=== PATIENT | male | born 1975 | race Caucasian/White ===

== ENCOUNTER 2016-10-20 20:36 | Emergency (ER) | payer SELFPAY ==
[~2016-10-20] VITALS: Ht 180.3 cm; Wt 119.3 kg
[~2016-10-20 20:36] MED LIST: AMOXICILLIN500 MG ORAL; AZITHROMYCIN250 MG ORAL; CYCLOBENZAPRINE10 MG ORAL; JANUMET 50-1,01 EACH ORAL; LISINOPRIL10 MG ORAL; LISINOPRIL20 MG ORAL; LOVASTATIN10 MG ORAL; METFORMIN HCL1000 M1 ORAL; NAPROSYN500 M1 ORAL; PROMETHAZINE-D118 ML ORAL
[2016-10-20] MEDS ORDERED: HUMULIN R100 UNIT/1 SUBQ (20:53)
[2016-10-20] MEDS ORDERED: FENOFIBRATE54 MG ORAL (20:54)
[2016-10-20] MEDS ORDERED: CLARITIN10 M2 ORAL (20:56)
[2016-10-20 21:03] VITALS: BP 115/74
--- NOTE | 2016-10-22 13:43 | Emergency Room Report ---
History of Present Illness General Chief Complaint: Upper Respiratory Illness Source: Patient Present Illness HPI Patient's 40-year-old male presented after increased upper respiratory symptoms as well as a nonproductive cough. The patient had ill family members home. Patient is a diabetic and did not take his insulin. Patient had eaten very sugar meal. The patient denied any fever. He had some nasal congestion associated with earache. He denied any chest pain or shortness of breath. Allergies: Coded Allergies: NO KNOWN DRUG ALLERGIES (Unverified Allergy, Unknown, 05/11/14) Patient History Past Medical History: see triage record Reviewed Nursing Documentation: PMH: Agreed, PSxH: Agreed Nursing Documentation-PMH Hx Cardiac Problems: Yes - HIGH CHOLESTEROL Hx Diabetes: Yes Hx Cancer: No Hx Gastrointestinal Problems: Yes - constipation Hx Neurological Problems: No Review of Systems All Other Systems: negative except mentioned in HPI Physical Exam Vital Signs Date Time Temp Pulse Resp B/P Pulse Ox O2 Delivery O2 Flow Rate FiO2 10/20/16 20:49 98.2 110 14 115/74 95 Room Air Sp02 EP Interpretation: reviewed, normal General Appearance: normal inspection, well appearing, no apparent distress, alert, GCS 15 Head: atraumatic ENT: normal ENT inspection, hearing grossly normal, normal voice Neck: normal inspection, full range of motion, supple, no bony tend Respiratory: normal inspection, lungs clear, normal breath sounds, no respiratory distress, no retraction, no wheezing Cardiovascular #1: regular rate, rhythm, no edema Gastrointestinal: normal inspection, normal bowel sounds, non tender, soft, no guarding, no hernia Genitourinary: no CVA tenderness Musculoskeletal: normal inspection, back normal, normal range of motion Neurologic: normal inspection, alert, oriented x3, responsive, customer quality engineer III-XII nml as tested, speech normal Psychiatric: normal inspection, judgement/insight normal, mood/affect normal Skin: normal inspection, normal color, no rash Medical Decision Making Diagnostic Impression: Primary Impression: Upper respiratory infection ER Course Patient presented for cough. Differential diagnosis included but was not limited to the uncontrolled diabetes, upper respiratory infection, bronchitis, pneumonia, pulmonary embolism, pericarditis, asthma, foreign body. Patient's benign exam and does not appear to require any further imaging or laboratory testing at this time. The patient presented an upper respiratory infection which does not require antibiotic treatment at this time. Patient was given prescription for Claritin. The patient was advised dietary modification. He was also advised to continue with his medications followup with his primary care physician for reexamination. Patient's blood sugar is noted be slightly greater than 300. The patient stated that he would take his insulin when he got home. Patient is advised to return if he began having increased blood sugar dizziness or weakness or other concerns. Last Vital Signs Date Time Temp Pulse Resp B/P Pulse Ox O2 Delivery O2 Flow Rate FiO2 10/20/16 21:03 98.2 14 115/74 95 Room Air 10/20/16 20:56 110 Status: improved Disposition: HOME, SELF-CARE Condition: Stable Scripts Loratadine (CLARITIN) 10 Mg Capsule 10 MG ORAL DAILY, #30 CAP Prov: Jono Koenig 10/20/16 Referrals: NOT CHOSEN IPA/,REFERRING (PCP) Patient Instructions: Upper Respiratory Infection, Adult Jono Koenig Oct 22, 2016 13:43
== END 2016-10-20 21:15 | disposition home or self-care (01) ==
LOC: EMR 21:05
DX: J06.9 Acute upper respiratory infection, unspecified (principal); E11.9 Type 2 diabetes mellitus without complications
CPT/HCPCS: 99283

== ENCOUNTER 2017-03-12 18:31 | Emergency (ER) | payer SELFPAY ==
[~2017-03-12] VITALS: Ht 180.3 cm; Wt 119.7 kg
[~2017-03-12 18:31] MED LIST changes: +CLARITIN10 M2 ORAL; +FENOFIBRATE54 MG ORAL; +HUMULIN R100 UNIT/1 SUBQ
[2017-03-12 20:30] VITALS: BP 123/79
[2017-03-12 20:38] VITALS: BP 123/79
--- NOTE | 2017-03-12 21:42 | Emergency Room Report ---
History of Present Illness General Chief Complaint: Pain Source: Patient (BETO MASSEY) Present Illness HPI The patient is a 41-year-old male presenting for left toe pain. He states that this began 2 days prior after he dropped a heavy bucket onto the toe. Pain is a 7/10 dull ache and does not radiate. Worse with touch. He has not taken any medications for the pain. He denies any other injury or symptoms (BETO MASSEY) Allergies: Coded Allergies: NO KNOWN DRUG ALLERGIES (Unverified Allergy, Unknown, 05/11/14) Patient History Past Medical History: see triage record Pertinent Family History: none Reviewed Nursing Documentation: PMH: Agreed, PSxH: Agreed (BETO MASSEY) Nursing Documentation-PMH Hx Cardiac Problems: Yes - Hypercholesterolemia Hx Diabetes: Yes Hx Cancer: No Hx Gastrointestinal Problems: Yes - Constipation Hx Neurological Problems: No (BETO MASSEY) Review of Systems All Other Systems: negative except mentioned in HPI (BETO MASSEY) Physical Exam Vital Signs Date Time Temp Pulse Resp B/P (MAP) Pulse Ox O2 Delivery O2 Flow Rate FiO2 03/12/17 18:38 97.9 100 18 123/79 96 Room Air Sp02 EP Interpretation: reviewed, normal General Appearance: no apparent distress, alert, GCS 15, non-toxic Head: normocephalic, atraumatic Eyes: bilateral eye normal inspection, bilateral eye PERRL Musculoskeletal: back normal, gait/station normal, normal range of motion, no calf tenderness, tender - L 1st toe Neurologic: alert, oriented x3, responsive, motor strength/tone normal, sensory intact, speech normal Psychiatric: judgement/insight normal, memory normal, mood/affect normal, no suicidal/homicidal ideation Skin: other - L 1st toe subungual hematoma Lymphatic: no adenopathy (BETO MASSEY.ABeltran) Procedures Nail Trepanation Nail Trepanation : Consent: Verbal Nail Trepanation Location: L 1st toenail Method of Drainage: nail cauterized Sterile Dressing Applied: No Finger Splint: No Patient Tolerated: Well Complications: None (BETO MASSEYABeltran) Medical Decision Making PA Attestation Dr. Conrad is my supervising physician. Patient management was discussed with my supervising physician (BETO MASSEY) Diagnostic Impression: Primary Impression: Subungual hematoma ER Course The patient is a 41-year-old male presenting for left toe pain. Ddx considered include but not limited to subungual hematoma, sprain/strain, fracture, contusion PE: NAD There is tenderness to palpation over the left distal first toe. Subungual hematoma X-ray of the left foot unremarkable Nail trepanation performed with electrocautery. Dark blood was expelled and the patient had relief of pain. Patient tolerated well He will keep the area clean and dry. ER precautions are given (BETO MASSEY) Other X-Ray Diagnostic Results Other X-Ray Diagnostic Results : X-Ray ordered: L foot # of Views/Limited Vs Complete: 3 View, Complete Indication: Pain EP Interpretation: Yes PA Xray: Interpretation reviewed, by supervising MD, and agrees with findings. Interpretation: no dislocation, no soft tissue swelling, no fractures Impression: No acute disease Electronically Signed by: Beto Massey PA-C (BETO MASSEY) Other X-Ray Diagnostic Results : Electronically Signed by: Tyree documentation reviewed by me and is accurate, Christiano Conrad MD. (Christiano Conrad M.D.) Last Vital Signs Date Time Temp Pulse Resp B/P (MAP) Pulse Ox O2 Delivery O2 Flow Rate FiO2 03/12/17 18:38 97.9 100 18 123/79 96 Room Air Status: improved (BETO MASSEY) Disposition: HOME, SELF-CARE Condition: Improved Patient Instructions: Subungual Hematoma Additional Instructions: I discussed my findings with the patient. All questions and concerns have been answered. Treatment and medication compliance have been addressed. I advised the patient that they need to follow up with PMD in 3-5 days. Return to ED if symptoms worsen, new symptoms arise, or if needed for any reason. Patient verbalized understanding of discharge instructions. If you notice redness of your skin, please return to emergency department as soon as possible BETO MASSEY Mar 12, 2017 21:42 Christiano Conrad M.D. Mar 13, 2017 07:47
--- NOTE | 2017-03-15 15:17 | Diagnostic Imaging Report ---
Indication: Left foot pain Technique: Left foot 3 views Comparison: None Findings: There is no acute fracture or dislocation. Mild soft tissue swelling of the foot is noted. There is a tiny posterior calcaneal is a fight. Flexion deformities are noted of the second and third digits. There is slight subluxation of the second distal interphalangeal joint. Impression: No acute fracture or dislocation. Slight subluxation of the second distal interphalangeal joint seen on the oblique view. Clinical correlation recommended. Tiny posterior calcaneal enthesophyte.
== END 2017-03-12 20:38 | disposition home or self-care (01) ==
LOC: EMR 19:00
DX: S90.212A Contusion of left great toe with damage to nail, initial encounter (principal); W20.8XXA Other cause of strike by thrown, projected or falling object, initial encounter; Y92.89 Other specified places as the place of occurrence of the external cause; E11.9 Type 2 diabetes mellitus without complications; E78.00 Pure hypercholesterolemia, unspecified
CPT/HCPCS: 99283

== ENCOUNTER 2017-03-17 23:17 | Emergency (ER) | payer SELFPAY ==
[~2017-03-17] VITALS: Ht 180.3 cm; Wt 119.3 kg
[2017-03-17 23:59] VITALS: BP 122/81
--- NOTE | 2017-03-18 02:12 | Emergency Room Report ---
History of Present Illness General Chief Complaint: Lower Extremity Injury Present Illness HPI Patient presents for evaluation of toe injury There was a glue bottle the fell on the toe approximately 6 days ago Patient was seen here in had cautery done Patient is here with was concerned that the patient has diabetes In the nailbed area appears discolored Patient denies any pain to the area however with increased walking there is some discomfort Denies any fevers or chills Allergies: Coded Allergies: NO KNOWN DRUG ALLERGIES (Unverified Allergy, Unknown, 05/11/14) Patient History Past Medical History: see triage record Pertinent Family History: none Reviewed Nursing Documentation: PMH: Agreed, PSxH: Agreed Nursing Documentation-PMH Hx Cardiac Problems: Yes - Hypercholesterolemia Hx Diabetes: Yes Hx Cancer: No Hx Gastrointestinal Problems: Yes - Constipation Hx Neurological Problems: No Review of Systems All Other Systems: negative except mentioned in HPI Physical Exam Vital Signs Date Time Temp Pulse Resp B/P (MAP) Pulse Ox O2 Delivery O2 Flow Rate FiO2 03/17/17 23:33 97.9 104 16 122/81 95 Room Air Sp02 EP Interpretation: reviewed, normal General Appearance: well appearing, no apparent distress Head: normocephalic, atraumatic Eyes: bilateral eye PERRL, bilateral eye EOMI Musculoskeletal: normal inspection Neurologic: alert, oriented x3, responsive Psychiatric: mood/affect normal Skin: other - Left large toe there appears to be a subungual hematoma, the nailbed area also does appear mildly discolored the hole that was placed with cautery appears to have closed up, the nail itself appears to be somewhat loose Lymphatic: no adenopathy Medical Decision Making Diagnostic Impression: Primary Impression: Subungual hematoma ER Course The clinical exam at this time reveals findings that are in line with subungual hematoma and secondary effects of this I did discuss with the family that likely the nail will be falling off They require close follow with primary physician and that she followup given the diabetic history Last Vital Signs Date Time Temp Pulse Resp B/P (MAP) Pulse Ox O2 Delivery O2 Flow Rate FiO2 03/17/17 23:33 97.9 104 16 122/81 95 Room Air Status: unchanged Disposition: HOME, SELF-CARE Condition: Stable Referrals: NON PHYSICIAN (PCP) Patient Instructions: Subungual Hematoma, [id number] Additional Instructions: This appears to be a natural progression of the initial acute injury. The toenail itself will likely fall off given the appearance. Given your risk factors followup with primary physician for podiatry followup is very important DESTIN COLON D.O. Mar 18, 2017 02:12
== END 2017-03-17 23:59 | disposition home or self-care (01) ==
LOC: EMR 23:59
DX: S90.212A Contusion of left great toe with damage to nail, initial encounter (principal); W22.8XXA Striking against or struck by other objects, initial encounter; Y92.9 Unspecified place or not applicable; E11.9 Type 2 diabetes mellitus without complications; E78.00 Pure hypercholesterolemia, unspecified
CPT/HCPCS: 99282

== ENCOUNTER 2017-06-02 21:53 | Emergency (ER) | payer SELFPAY ==
[~2017-06-02] VITALS: Ht 180.3 cm; Wt 121.6 kg
[2017-06-02 22:22] VITALS: BP 114/73
[2017-06-02 22:26] VITALS: BP 114/73
--- NOTE | 2017-06-02 22:53 | Emergency Room Report ---
History of Present Illness General Chief Complaint: Pain Source: Patient Present Illness HPI 41-year-old male presenting with left toenail discoloration. States that he injured it 2 months ago, he had a nail trephination performed, however nail is still dark. Also has chronic pain although he has been able to walk on it. No purulent drainage no redness. No other complaints Allergies: Coded Allergies: NO KNOWN DRUG ALLERGIES (Unverified Allergy, Unknown, 05/11/14) Patient History Past Medical History: see triage record Past Surgical History: none Pertinent Family History: none Reviewed Nursing Documentation: PMH: Agreed; PSxH: Agreed Nursing Documentation-PMH Hx Cardiac Problems: Yes - Hypercholesterolemia Hx Diabetes: Yes Hx Cancer: No Hx Gastrointestinal Problems: Yes - Constipation Hx Neurological Problems: No Review of Systems All Other Systems: negative except mentioned in HPI Physical Exam Vital Signs Date Time Temp Pulse Resp B/P (MAP) Pulse Ox O2 Delivery O2 Flow Rate FiO2 06/02/17 21:57 98.2 102 14 114/73 95 Room Air 98.2 Sp02 EP Interpretation: reviewed, normal General Appearance: normal inspection, well appearing, no apparent distress, alert, GCS 15, non-toxic Head: normocephalic, atraumatic Eyes: bilateral eye normal inspection, bilateral eye PERRL, bilateral eye EOMI ENT: normal ENT inspection, normal pharynx, normal voice, moist mucus membranes Neck: normal inspection, full range of motion, supple Respiratory: normal inspection Cardiovascular #1: normal inspection Cardiovascular #2: 2+ radial (R), 2+ radial (L) Gastrointestinal: normal inspection Genitourinary: no CVA tenderness Musculoskeletal: other - Left toenail with darkish discoloration, nontender to palpation, trephination puncture wound noted, no redness of surrounding skin not , no purulent drainage, full range of motion Neurologic: normal inspection, alert, oriented x3, responsive, motor strength/ tone normal, sensory intact, normal gait, speech normal Psychiatric: normal inspection, judgement/insight normal, memory normal Skin: normal inspection, normal color, no rash, warm/dry, well hydrated, normal turgor Medical Decision Making Diagnostic Impression: Primary Impression: Toe pain, chronic ER Course 41-year-old male with left toenail discoloration, 2 months ago had a nail trephination performed DDX: Likely chronic discoloration from healing injury Plan: None ER course: Patient has remained stable during ED stay. Disposition: Patient is to be discharged to home. Patient is instructed to follow up with their primary care doctor within 5 days. Please note that this Emergency Department Report was dictated using [employer] technician technology software, occasionally this can lead to erroneous entry secondary to interpretation by the dictation equipment Last Vital Signs Date Time Temp Pulse Resp B/P (MAP) Pulse Ox O2 Delivery O2 Flow Rate FiO2 06/02/17 22:26 102 14 114/73 95 Room Air 06/02/17 22:22 98.2 98.2 Disposition: HOME, SELF-CARE Condition: Stable Referrals: NON PHYSICIAN (PCP) Additional Instructions: PLEASE FOLLOW UP WITH YOUR DOCTOR IN 1 WEEK WITHOUT FAIL Maria Luisa Justice M.D. Jun 02, 2017 22:53
== END 2017-06-02 22:26 | disposition home or self-care (01) ==
LOC: EMR 22:16
DX: M79.675 Pain in left toe(s) (principal); G89.29 Other chronic pain; E11.9 Type 2 diabetes mellitus without complications
CPT/HCPCS: 99282

== ENCOUNTER 2017-12-04 22:52 | Emergency (ER) | payer SELFPAY ==
[~2017-12-04] VITALS: Ht 175.3 cm; Wt 88.5 kg
[2017-12-04] MEDS ORDERED: IBUPROFEN600 MG ORAL (23:48)
--- NOTE | 2017-12-04 23:52 | Emergency Room Report ---
History of Present Illness General Chief Complaint: Lower Extremity Injury Source: Patient Present Illness HPI Patient presents with complaints of right knee pain Reports that the discomfort has been ongoing for the past several months He feels that at times his knee pops This morning patient had an episode where he missed a step and felt pain to the right knee Denies any chest pain or short of breath denies any pelvic pain Pain is worse with ambulation better with rest Denies any swelling denies any erythema Allergies: Coded Allergies: NO KNOWN DRUG ALLERGIES (Unverified Allergy, Unknown, 05/11/14) Patient History Past Medical History: see triage record Pertinent Family History: none Reviewed Nursing Documentation: PMH: Agreed; PSxH: Agreed Nursing Documentation-PMH Hx Cardiac Problems: Yes - Hypercholesterolemia Hx Diabetes: Yes Hx Cancer: No Hx Gastrointestinal Problems: Yes - Constipation Hx Neurological Problems: No Review of Systems All Other Systems: negative except mentioned in HPI Physical Exam Vital Signs Date Time Temp Pulse Resp B/P (MAP) Pulse Ox O2 Delivery O2 Flow Rate FiO2 12/04/17 22:58 98.2 78 16 143/88 99 Room Air 98.2 Sp02 EP Interpretation: reviewed, normal General Appearance: well appearing, no apparent distress Head: normocephalic, atraumatic Eyes: bilateral eye PERRL, bilateral eye EOMI ENT: hearing grossly normal, normal pharynx Neck: supple Respiratory: lungs clear Musculoskeletal: normal inspection - Patient has appropriate anterior posterior draw on the right knee, no obvious laxity no joint effusion clinically sensory intact Neurologic: alert, oriented x3 Skin: normal color, no rash Lymphatic: no adenopathy Medical Decision Making Diagnostic Impression: Primary Impression: knee pain ER Course Given the patient's history exam and presentation There are multiple differentials considered including but not limited to, disc pathology ligamental pathology Consideration for acute fracture is low Patient did not have any acute trauma or direct trauma Patient reports that they have follow-up with their physician on Tuesday Patient would benefit from MRI imaging for further evaluation as disposition for close outpatient follow-up after oral pain medication , Last Vital Signs Date Time Temp Pulse Resp B/P (MAP) Pulse Ox O2 Delivery O2 Flow Rate FiO2 12/04/17 22:58 98.2 78 16 143/88 99 Room Air 98.2 Status: improved Disposition: HOME, SELF-CARE Condition: Improved Scripts Ibuprofen* (MOTRIN*) 600 Mg Tablet 600 MG ORAL THREE TIMES A DAY, #20 TAB 0 Refills Prov: Telly Dempsey DO 12/04/17 Referrals: NOT CHOSEN IPA/MD,REFERRING (PCP) Patient Instructions: Knee Pain, [id number] Additional Instructions: please keep your appointment with your primary physician. Patient also provided with the discharge instructions notified to follow up with primary doctor in the next 2-3 days otherwise return to the er with any worsening symptoms. Please note that this report is being documented using [employer] technology. This can lead to erroneous entry secondary to incorrect interpretation by the dictating instrument. Telly Dempsey DO Dec 04, 2017 23:52
[2017-12-05 00:01] VITALS: BP 143/88
== END 2017-12-05 00:05 | disposition home or self-care (01) ==
LOC: EMR 23:26
DX: M25.561 Pain in right knee (principal); E11.9 Type 2 diabetes mellitus without complications; E78.00 Pure hypercholesterolemia, unspecified
CPT/HCPCS: 99283

== ENCOUNTER 2018-06-08 21:53 | Emergency (ER) | payer SELFPAY ==
[~2018-06-08] VITALS: Ht 180.3 cm; Wt 115.7 kg
[~2018-06-08 21:53] MED LIST changes: +IBUPROFEN600 MG ORAL
--- NOTE | 2018-06-08 22:27 | NUR ---
ED Nurse Note: pt walked in c/o right side chest pain radiating to back intermittently for past month, denies other sx, denies sob. pt AA&ox4, gcs=15, skin warm and dry, resp even and unlabored on RA, -n/v/d, ambulates w/ steady gait, VSS, NSR on distribution agent, will cont monitor.
[2018-06-08 22:28] VITALS: BP 120/68
--- NOTE | 2018-06-08 23:10 | NUR ---
HAND OFF: Per RN Katherine, RN received report from triage nurse, endorsed care to receiving RN, pt vss, NSR on secured entrance monitor, resp even and unlabored on RA, no sx distress at this time.
--- NOTE | 2018-06-08 23:14 | NUR ---
Note matildaone in EDM - 06/09/18 at 1950 by [facility] ED Nurse Note: receiving KIMO Murphy refused to get report, endorsed care, pt vss, resp even and unlabored on RA, Nsr on rn cardiac rehab.
--- NOTE | 2018-06-08 23:15 | NUR ---
ED Nurse Note: RECIEVED REPORT TO RESUME CARE, PT IN BED AWAKE AND ALERT, PT HAS IV LINE STARTED BY PREVIOUS NURSE, PT HERE WITH C/O CHES PAIN, STATES HAD CONSTIPATION FOR PAST MONTH AND MILD RELIEF, DENIES CP AT THIS TIME, ON CARDIAC MONITORING, SPOUSE AT BEDSIDE, WILL RESUME CARE ORDERD AND CONTINUE TO CLOSELY MONITOR.
--- NOTE | 2018-06-08 23:21 | Emergency Room Report ---
History of Present Illness General Chief Complaint: Chest Pain Source: Patient Present Illness HPI Patient presents with complaints of right upper chest pain ongoing for the past one month It was felt that the patient had increased pain with movement and some muscle skeletal component denies any short of breath denies any pleurisy Denies any recent fall or trauma denies any dysuria frequency There is some radiation towards the upper back Allergies: Coded Allergies: NO KNOWN DRUG ALLERGIES (Unverified Allergy, Unknown, 05/11/14) Patient History Past Medical History: see triage record Pertinent Family History: none Reviewed Nursing Documentation: PMH: Agreed; PSxH: Agreed Nursing Documentation-PMH Past Medical History: No History, Except For Hx Cardiac Problems: Yes - Hypercholesterolemia Hx Diabetes: Yes Hx Cancer: No Hx Gastrointestinal Problems: Yes - Constipation Hx Neurological Problems: No Review of Systems All Other Systems: negative except mentioned in HPI Physical Exam Vital Signs Date Time Temp Pulse Resp B/P (MAP) Pulse Ox O2 Delivery O2 Flow Rate FiO2 06/08/18 22:05 97.9 94 16 126/79 95 Room Air Sp02 EP Interpretation: reviewed, normal General Appearance: well appearing, no apparent distress Head: normocephalic, atraumatic Eyes: bilateral eye PERRL, bilateral eye EOMI ENT: hearing grossly normal, normal pharynx, TMs + canals normal, uvula midline Neck: full range of motion, supple, no meningismus, no bony tend Respiratory: lungs clear, normal breath sounds, no rhonchi, no respiratory distress, no retraction, no accessory muscle use Cardiovascular #1: normal peripheral pulses, regular rate, rhythm, no edema, no gallop, no JVD, no murmur Gastrointestinal: normal bowel sounds, non tender, soft, no mass, no organomegaly, non-distended, no guarding, no hernia, no pulsatile mass, no rebound Genitourinary: no CVA tenderness Musculoskeletal: normal inspection Neurologic: oriented x3, responsive, rn camp III-XII nml as tested, motor strength/ tone normal, sensory intact Psychiatric: mood/affect normal Skin: normal color, no rash, warm/dry, palpation normal Lymphatic: normal inspection, no adenopathy Medical Decision Making Diagnostic Impression: Primary Impression: Chest pain Additional Impression: Diabetes ER Course Patient is a fairly complex patient with multiple differential to consideration including but not limited to cardiac cardiopulmonary and vascular emergencies Patient's blood work reveals some elevated liver function test Glucose level was also significantly elevated This was addressed in the emergency room patient reports that he takes metformin Blood work is printed for the patient he requires close follow-up with his primary physician medication such as metformin can cause liver problems also Potentially experiencing biliary colic with some radiation to the back Patient otherwise does not show any signs of acute cholecystitis And is stable for close outpatient follow-up Labs Test 06/08/18 22:53 White Blood Count 5.8 K/UL (4.8-10.8) Red Blood Count 5.01 M/UL (4.70-6.10) Hemoglobin 15.4 G/DL (14.2-18.0) Hematocrit 43.6 % (42.0-52.0) Mean Corpuscular Volume 87 FL (80-99) Mean Corpuscular Hemoglobin 30.7 PG (27.0-31.0) Mean Corpuscular Hemoglobin Concent 35.2 G/DL (32.0-36.0) Red Cell Distribution Width 12.1 % (11.6-14.8) Platelet Count 140 K/UL (150-450) Mean Platelet Volume 9.8 FL (6.5-10.1) Neutrophils (%) (Auto) 44.6 % (45.0-75.0) Lymphocytes (%) (Auto) 42.0 % (20.0-45.0) Monocytes (%) (Auto) 7.4 % (1.0-10.0) Eosinophils (%) (Auto) 3.6 % (0.0-3.0) Basophils (%) (Auto) 2.4 % (0.0-2.0) Sodium Level 135 MMOL/L (136-145) Potassium Level 4.2 MMOL/L (3.5-5.1) Chloride Level 99 MMOL/L (98-107) Carbon Dioxide Level 28 MMOL/L (21-32) Anion Gap 8 mmol/L (5-15) Blood Urea Nitrogen 19 mg/dL (7-18) Creatinine 1.1 MG/DL (0.55-1.30) Estimat Glomerular Filtration Rate > 60 mL/min (>60) Glucose Level 380 MG/DL (74-106) Calcium Level 8.7 MG/DL (8.5-10.1) Total Bilirubin 0.4 MG/DL (0.2-1.0) Aspartate Amino Transf (AST/SGOT) 71 U/L (15-37) Alanine Aminotransferase (ALT/SGPT) 89 U/L (12-78) Alkaline Phosphatase 129 U/L (46-116) Total Creatine Kinase 92 U/L (26-308) Creatine Kinase MB 0.6 NG/ML (0.0-3.6) Creatine Kinase MB Relative Index 0.6 Troponin I 0.000 ng/mL (0.000-0.056) Total Protein 7.6 G/DL (6.4-8.2) Albumin 3.9 G/DL (3.4-5.0) Globulin 3.7 g/dL Albumin/Globulin Ratio 1.1 (1.0-2.7) EKG Diagnostic Results Rate: normal Rhythm: NSR ST Segments: other - Nonspecific ST T-wave changes Rhythm Strip Diag. Results EP Interpretation: yes Rate: 77 Rhythm: NSR, no PVC's, no ectopy Chest X-Ray Diagnostic Results Chest X-Ray Diagnostic Results : Chest X-Ray Ordered: Yes # of Views/Limited/Complete: 1 View Indication: Chest Pain EP Interpretation: Yes Interpretation: no consolidation, no effusion, no pneumothorax Impression: No acute disease Electronically Signed by: Telly Dempsey DO Last Vital Signs Date Time Temp Pulse Resp B/P (MAP) Pulse Ox O2 Delivery O2 Flow Rate FiO2 06/08/18 22:30 97 18 Room Air 06/08/18 22:28 98.4 120/68 96 Status: improved Disposition: HOME, SELF-CARE Condition: Improved Additional Instructions: Patient is provided with the discharge instructions notified to follow up with primary doctor in the next 2-3 days otherwise return to the er with any worsening symptoms. Please note that this report is being documented using [employer] technology. This can lead to erroneous entry secondary to incorrect interpretation by the dictating instrument. Telly Dempsey DO Jun 08, 2018 23:21
[2018-06-08 23:29] LABS: BASOPHILS % (AUTO) 2.4 % (0.0-2.0); EOSINOPHILS % (AUTO) 3.6 % (0.0-3.0); HEMATOCRIT 43.6 % (42.0-52.0); HEMOGLOBIN 15.4 G/DL (14.2-18.0); MEAN CORPUSCULAR VOLUME 87 FL (80-99); MONOCYTES % (AUTO) 7.4 % (1.0-10.0); NEUTROPHILS % (AUTO) 44.6 % (45.0-75.0); PLATELET COUNT 140 K/UL (150-450); RED BLOOD COUNT 5.01 M/UL (4.70-6.10); RED CELL DISTRIBUTION WIDTH 12.1 % (11.6-14.8); WHITE BLOOD COUNT 5.8 K/UL (4.8-10.8)
[2018-06-08 23:30] LABS: ANION GAP 8 mmol/L (5-15); BLOOD UREA NITROGEN 19 mg/dL (7-18); CALCIUM 8.7 MG/DL (8.5-10.1); CARBON DIOXIDE 28 MMOL/L (21-32); CHLORIDE 99 MMOL/L (98-107); CREATININE 1.1 MG/DL (0.55-1.30); POTASSIUM 4.2 MMOL/L (3.5-5.1); SODIUM 135 MMOL/L (136-145)
[2018-06-08 23:45] LABS: ALBUMIN 3.9 G/DL (3.4-5.0); ALBUMIN/GLOBULIN RATIO 1.1 (1.0-2.7); BILIRUBIN,TOTAL 0.4 MG/DL (0.2-1.0); CKMB 0.6 NG/ML (0.0-3.6); CREATINE KINASE 92 U/L (26-308)
[2018-06-09] VITALS: BP 133/64
[2018-06-09] MEDS ORDERED: Insulin Human Regular 100units/ml 3ml SUBQ ONE (00:15)
[2018-06-09 00:18] LABS: ALANINE AMINOTRANSFERASE 89 U/L (12-78); ALKALINE PHOSPHATASE 129 U/L (46-116)
[2018-06-09 00:28] LABS: ASPARTATE AMINO TRANSFERASE 71 U/L (15-37)
--- NOTE | 2018-06-09 00:40 | NUR ---
ED Nurse Note: PT BEING D/C TO HOME, AWAKE, ALERT AND ORIENETED X 4, AMBULATORY, PAIN RESOLVED AT THIS TIME, NO CP, NO SOB OR LABORED BREATHING, PT AND GIVEN F/U INFO, AFTER CARE INSTRUCTIONS AND RE-VERBALIZES PROPER MEDICATION ADMINISTRATION, PT IV LINE AND ARMBAND REMOVED WITHOUT COMPLICATIONS, NAD NOTED DURING D/C TO HOME.
[2018-06-09 00:43] VITALS: BP 133/64
--- NOTE | 2018-06-09 17:57 | Diagnostic Imaging Report ---
Indication: Chest pain Technique: One view of the chest Comparison: 05/15/2015 Findings: There is some atelectasis at the left lung base. Lungs and pleural spaces are otherwise clear. Patient's chin obscures the upper mediastinum. No significant interim change Impression: No acute process
== END 2018-06-09 00:40 | disposition home or self-care (01) ==
LOC: EMR 22:45
DX: R07.9 Chest pain, unspecified (principal); E11.9 Type 2 diabetes mellitus without complications; E78.00 Pure hypercholesterolemia, unspecified
CPT/HCPCS: 36415; 71045; 80053; 82550; 82553; 82962; 84484; 85025; 93005; 96372; 99283; J1815

== ENCOUNTER 2018-10-25 21:28 | Emergency (ER) | payer SELFPAY ==
[~2018-10-25] VITALS: Ht 180.3 cm; Wt 119.3 kg
[2018-10-25 22:00] VITALS: BP 130/84
--- NOTE | 2018-10-25 22:00 | NUR ---
ED Nurse Note: RECIEVED PT FROM HOME, C/O LEFT MID ABDOMINAL PAIN FOR A WHILE WITH PAIN STARTING ABOUT 1 WEEK AGO, PT CAN NOT TELL IF EATING OR ANYTHING INCREASES PAIN, JUST INTERMITTENTLY AT 7/10, DENIES NAUSEA, PT ASSISTED TO GOWNING AND LABS DONE, WILL CONTINUE TO CLOSELY MONITOR, PT REPORTS PAIN AT 7/10.
--- NOTE | 2018-10-25 22:06 | Emergency Room Report ---
History of Present Illness General Chief Complaint: Abdominal Pain Source: Patient Present Illness HPI Patient presents with complaints of left upper and mid abdominal pain ongoing for the past 3 days denies any vomiting or diarrhea Denies any chest pain He feels that the pain is worse in the morning time Denies any change with eating denies any diarrhea denies any fevers or chills denies any recent travel or trauma pain is a sharp pain Allergies: Coded Allergies: NO KNOWN DRUG ALLERGIES (Unverified Allergy, Unknown, 05/11/14) Patient History Past Medical History: see triage record Reviewed Nursing Documentation: PMH: Agreed; PSxH: Agreed Nursing Documentation-PM Past Medical History: No History, Except For Hx Cardiac Problems: Yes - Hypercholesterolemia Hx Diabetes: Yes Hx Cancer: No Hx Gastrointestinal Problems: Yes - Constipation Hx Neurological Problems: No Review of Systems All Other Systems: negative except mentioned in HPI Physical Exam Vital Signs Date Time Temp Pulse Resp B/P (MAP) Pulse Ox O2 Delivery O2 Flow Rate FiO2 10/25/18 21:38 98.4 106 18 128/87 (101) 94 Room Air Sp02 EP Interpretation: reviewed, normal General Appearance: well appearing, no apparent distress Head: normocephalic, atraumatic Eyes: bilateral eye PERRL, bilateral eye EOMI ENT: hearing grossly normal, normal pharynx, TMs + canals normal, uvula midline Neck: full range of motion, supple, no meningismus, no bony tend Respiratory: lungs clear, normal breath sounds, no rhonchi, no respiratory distress, no retraction, no accessory muscle use Cardiovascular #1: normal peripheral pulses, regular rate, rhythm, no edema, no gallop, no JVD, no murmur Gastrointestinal: normal bowel sounds, non tender - However subjectively points to the left upper abdominal area, soft, no mass, no organomegaly, non- distended, no guarding, no hernia, no pulsatile mass, no rebound Genitourinary: no CVA tenderness Musculoskeletal: normal inspection Neurologic: oriented x3, responsive, programming director III-XII nml as tested, motor strength/ tone normal, sensory intact Psychiatric: mood/affect normal Skin: no rash Lymphatic: normal inspection, no adenopathy Medical Decision Making Diagnostic Impression: Primary Impression: Abdominal pain ER Course With the history exam and presentation, multiple differentials considered, including but not limited to appendicitis, gastritis, cholecystitis, diverticulitis Patient's blood work again shows similar findings to previous very minimal AST ALT elevation CT imaging does not show any obvious acute pathology Patient had rested comfortably and at this time stable for close outpatient follow-up Labs Test 10/25/18 22:00 White Blood Count 7.6 K/UL (4.8-10.8) Red Blood Count 4.85 M/UL (4.70-6.10) Hemoglobin 14.7 G/DL (14.2-18.0) Hematocrit 40.8 % (42.0-52.0) Mean Corpuscular Volume 84 FL (80-99) Mean Corpuscular Hemoglobin 30.2 PG (27.0-31.0) Mean Corpuscular Hemoglobin Concent 35.9 G/DL (32.0-36.0) Red Cell Distribution Width 11.8 % (11.6-14.8) Platelet Count 173 K/UL (150-450) Mean Platelet Volume 8.3 FL (6.5-10.1) Neutrophils (%) (Auto) 41.0 % (45.0-75.0) Lymphocytes (%) (Auto) 46.2 % (20.0-45.0) Monocytes (%) (Auto) 7.3 % (1.0-10.0) Eosinophils (%) (Auto) 3.8 % (0.0-3.0) Basophils (%) (Auto) 1.8 % (0.0-2.0) Sodium Level 136 MMOL/L (136-145) Potassium Level 4.3 MMOL/L (3.5-5.1) Chloride Level 102 MMOL/L (98-107) Carbon Dioxide Level 25 MMOL/L (21-32) Anion Gap 10 mmol/L (5-15) Blood Urea Nitrogen 17 mg/dL (7-18) Creatinine 1.1 MG/DL (0.55-1.30) Estimat Glomerular Filtration Rate > 60 mL/min (>60) Glucose Level 281 MG/DL (74-106) Calcium Level 9.3 MG/DL (8.5-10.1) Total Bilirubin 0.5 MG/DL (0.2-1.0) Aspartate Amino Transf (AST/SGOT) 45 U/L (15-37) Alanine Aminotransferase (ALT/SGPT) 84 U/L (12-78) Alkaline Phosphatase 103 U/L (46-116) Total Protein 8.3 G/DL (6.4-8.2) Albumin 4.0 G/DL (3.4-5.0) Globulin 4.3 g/dL Albumin/Globulin Ratio 0.9 (1.0-2.7) Lipase 306 U/L (73-393) CT/MRI/US Diagnostic Results CT/MRI/US Diagnostic Results : Impression CT abdomen pelvis fat-containing umbilical hernia no other acute disease Last Vital Signs Date Time Temp Pulse Resp B/P (MAP) Pulse Ox O2 Delivery O2 Flow Rate FiO2 10/25/18 21:38 98.4 106 18 128/87 (101) 94 Room Air Status: improved Disposition: HOME, SELF-CARE Condition: Improved Scripts Famotidine (PEPCID AC) 20 Mg Tablet 20 MG PO DAILY, #7 TAB Prov: Telly Dempsey DO 10/26/18 Additional Instructions: Patient is provided with the discharge instructions notified to follow up with primary doctor in the next 2-3 days otherwise return to the er with any worsening symptoms. Please note that this report is being documented using [employer] technology. This can lead to erroneous entry secondary to incorrect interpretation by the dictating instrument. Telly Dempsey DO Oct 25, 2018 22:06
[2018-10-25 22:28] LABS: BASOPHILS % (AUTO) 1.8 % (0.0-2.0); EOSINOPHILS % (AUTO) 3.8 % (0.0-3.0); HEMATOCRIT 40.8 % (42.0-52.0); HEMOGLOBIN 14.7 G/DL (14.2-18.0); LYMPHOCYTES % (AUTO) 46.2 % (20.0-45.0); MEAN CORPUSCULAR VOLUME 84 FL (80-99); MONOCYTES % (AUTO) 7.3 % (1.0-10.0); PLATELET COUNT 173 K/UL (150-450); RED BLOOD COUNT 4.85 M/UL (4.70-6.10); RED CELL DISTRIBUTION WIDTH 11.8 % (11.6-14.8); WHITE BLOOD COUNT 7.6 K/UL (4.8-10.8)
--- NOTE | 2018-10-25 22:40 | Diagnostic Imaging Report ---
Indication: Left-sided abdominal pain for past 3 days Technique: Spiral acquisitions obtained through the abdomen and pelvis. No oral contrast utilized, per emergency room physician request No IV contrast utilized, per referring physician request.. Multiplanar reconstructions were generated. Total dose length product 1123.64 mGycm. CTDIvol(s) 18.84 mGy. Dose reduction achieved using automated exposure control Comparison: None Findings: The rectum is mildly distended by stool. Mild to moderate retained stool seen elsewhere in the colon as well. No evidence of diverticulosis or diverticulitis. The appendix is normal. There is no small bowel distention. There is a tiny umbilical hernia which contains only fat. No free or loculated intraperitoneal gas or fluid. There is a tiny right inguinal hernia which contains only fat. There is very slight infiltration of the fat of the mesenteric root. Lack of IV contrast limits assessment of the solid organs. The liver is mildly hypoattenuating and somewhat enlarged. No focal abnormality. There are cholecystectomy clips. No biliary ductal dilatation. The pancreas is unremarkable. The spleen is enlarged, measuring 15.2 cm long axis dimension. The adrenals and kidneys are unremarkable. No retroperitoneal or mesenteric mass or adenopathy. There is a retroaortic left renal vein incidentally noted. No pelvic mass or adenopathy. The prostate is somewhat prominent. The included lung bases demonstrate a calcified granuloma in the right middle lobe. There is some scarring at both lung bases. There are degenerative changes of the lumbar spine. Impression: Moderate retained stool, could indicate constipation. Correlate with clinical history. There is also mild rectal distention with stool, could indicate component of rectal fecal impaction. Nonspecific very mild inflammatory changes within the mesenteric root, etiology/significance uncertain No acute process otherwise Enlarged fatty liver Splenomegaly Other findings as noted, including fat-containing umbilical hernia, fat-containing right inguinal hernia, evidence of prior cholecystectomy, retroaortic left renal vein, old granulomatous disease within the right middle lobe, basilar pulmonary parenchymal scarring, and degenerative lumbar spondylosis This essentially agrees with the preliminary interpretation provided overnight by [facility]. The CT scanner at [facility] is accredited by the [employer] and the scans are performed using protocols designed to limit radiation exposure to as low as reasonably achievable to attain images of sufficient resolution adequate for diagnostic evaluation.
[2018-10-25 22:43] LABS: ANION GAP 10 mmol/L (5-15); BLOOD UREA NITROGEN 17 mg/dL (7-18); CALCIUM 9.3 MG/DL (8.5-10.1); CARBON DIOXIDE 25 MMOL/L (21-32); CHLORIDE 102 MMOL/L (98-107); CREATININE 1.1 MG/DL (0.55-1.30); POTASSIUM 4.3 MMOL/L (3.5-5.1); SODIUM 136 MMOL/L (136-145)
[2018-10-25 22:48] LABS: ALANINE AMINOTRANSFERASE 84 U/L (12-78); ALBUMIN/GLOBULIN RATIO 0.9 (1.0-2.7); ALKALINE PHOSPHATASE 103 U/L (46-116); ASPARTATE AMINO TRANSFERASE 45 U/L (15-37); BILIRUBIN,TOTAL 0.5 MG/DL (0.2-1.0)
--- NOTE | 2018-10-26 00:02 | NUR ---
ED Nurse Note: pt in bed, awake. VSS.
[2018-10-26] MEDS ORDERED: PEPCID AC20 M2 PO (00:54)
[2018-10-26 00:58] VITALS: BP 128/84
--- NOTE | 2018-10-26 00:58 | NUR ---
ER DISCHARGE NOTE: Patient is cleared to be discharged per ERMD, pt is aox4, on room air, with stable vital signs. pt was given dc and prescription instructions, pt was able to verbalize understanding, pt id band and iv site removed without complications. pt is able to ambulate with steady gait. pt took all belongings.
== END 2018-10-26 00:58 | disposition home or self-care (01) ==
LOC: EMR 21:43
DX: K42.9 Umbilical hernia without obstruction or gangrene (principal); R10.12 Left upper quadrant pain; E78.00 Pure hypercholesterolemia, unspecified; E11.9 Type 2 diabetes mellitus without complications
CPT/HCPCS: 36415; 74176; 80053; 83690; 85025; 99284